=== PATIENT | female | born 1990 | race African-American/Black ===

== ENCOUNTER 2017-04-10 19:05 | Emergency (ER) | payer OTHER ==
[2017-04-10 21:04] LABS: INFLUENZA A AMPLIFICATION POSITIVE (NEGATIVE); INFLUENZA B AMPLIFICATION NEGATIVE (NEGATIVE)
[2017-04-10] MEDS: OSELTAMIVIR PHOSPHATE 75 MG CAP (TAMIFLU) PO (21:30)
== END 2017-04-10 21:36 | disposition home or self-care (01) ==
LOC: M ED 19:05
DX: J09.X2 Influenza due to identified novel influenza A virus with other respiratory manifestations (principal); Z79.3 Long term (current) use of hormonal contraceptives
CPT/HCPCS: 87502

== ENCOUNTER → 2017-06-07 | Outpatient (REF) | payer OTHER | LOC: M LAB REF 13:42 | DX: Z01.419 Encounter for gynecological examination (general) (routine) without abnormal findings (principal); Z12.4 Encounter for screening for malignant neoplasm of cervix ==

== ENCOUNTER 2018-07-06 23:18 | Emergency (ER) | payer BC, OTHER ==
[~2018-07-06] VITALS: Ht 165.1 cm; Wt 68.2 kg
[~2018-07-06 23:18] MED LIST: ANUS2.5C2 EXT; DOCU5LIQ PO; HEAT0.35; IBUP-1114 PO; IBUP600T26 PO; LANOOIN21 EX; MAPA500T17 PO; MAPA500T2 PO; MILK10SU PO; OSEL75CA PO; PRENTAB66 PO
[2018-07-07] MEDS ORDERED: IBUP80TA PO (00:50)
[2018-07-07] MEDS ORDERED: IBUPROFEN 800 MG TAB PO ONE (01:00)
[2018-07-07 01:08] VITALS: BP 120/69
--- NOTE | 2018-07-07 07:58 | REP ---
LEFT KNEE, FOUR VIEWS: HISTORY: Pain. There is no acute fracture or dislocation. The joint spaces are normal in appearance. IMPRESSION: There is no acute fracture or dislocation. Electronically Signed by Nikhil Marie MD 07/07/2018 08:35 A
== END 2018-07-07 01:09 | disposition home or self-care (01) ==
LOC: M ED 23:18
DX: S83.002A Unspecified subluxation of left patella, initial encounter (principal); X58.XXXA Exposure to other specified factors, initial encounter; Y92.89 Other specified places as the place of occurrence of the external cause; Z79.3 Long term (current) use of hormonal contraceptives

== ENCOUNTER → 2018-08-03 | Outpatient (CLI) | payer BC ==
[~2018-08-03] MED LIST changes: +IBUP80TA PO
--- NOTE | 2018-08-06 10:03 | REP ---
MRI LEFT KNEE: TECHNIQUE: Axial proton density fat saturation, sagittal proton density T2 STIR, water excitation, coronal proton density, proton density fat saturation. The menisci are intact with no evidence of a tear. The cruciate and collateral ligaments are intact. The medial and lateral patellar retinacula are intact. The extensor mechanism is intact. No osteochondral defect is seen. There is very mild global chondromalacia along the femoral condyles. There is no bone marrow edema or occult fracture. There is a small joint effusion. No popliteal cyst is seen. IMPRESSION: No evidence of internal derangement. 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 Small joint effusion. Electronically Signed by Tacos Matias MD 08/06/2018 11:04 A
== END ==
LOC: M RAD 10:42
PROVIDERS: ATTEND Orthopaedic Surgery Sports Medicine
DX: M25.562 Pain in left knee (principal); M25.462 Effusion, left knee; M94.262 Chondromalacia, left knee

== ENCOUNTER → 2018-08-06 | Outpatient (REF) | payer BC | LOC: M LAB REF 16:06 | PROVIDERS: ATTEND Physician Assistant | DX: J02.9 Acute pharyngitis, unspecified (principal) ==

== ENCOUNTER → 2019-01-07 | Outpatient (REF) | payer BC | LOC: M LAB REF 17:23 | PROVIDERS: ATTEND Specialist | DX: Z12.4 Encounter for screening for malignant neoplasm of cervix (principal) ==

== ENCOUNTER → 2019-01-15 | Outpatient (CLI) | payer BC ==
--- NOTE | 2019-01-16 09:33 | REP ---
Clinical: Abnormal menstrual cycles . Technique: Transabdominal pelvic ultrasound followed by transvaginal examination for better evaluation of the endometrium and adnexa with color Doppler evaluation of the ovaries. Findings: Bladder is incompletely distended. Normal anteverted uterus measures 8.2 x 3.8 x 4.4 cm . The endometrial complex measures 7.3 mm thickness. No discrete uterine or endometrial abnormalities are appreciated. Prominent pelvic vessels are appreciated raising the possibility of pelvic congestion syndrome. Bilateral ovaries are normal in appearance and vascularity without evidence for torsion. Right ovary measures 3.2 x 1.2 x 1.4 cm ; R I = 0.53 . Left ovary measures 3.4 x 2.3 x 2.7 cm with 2.2 cm complex likely physiologic cyst ; R I = 0.47 . No pelvic fluid or adnexal mass lesion. Impression: 1. Complex left ovarian cyst likely physiologic. Consider reevaluation in 4-weeks to evaluate for resolution. 2. Prominent pulmonary vasculature raises the possibility of pelvic congestion syndrome. Electronically Signed by Delmar Baum MD 01/16/2019 09:25 A
== END ==
LOC: M RAD 17:35
PROVIDERS: ATTEND Specialist
DX: N83.202 Unspecified ovarian cyst, left side (principal); N93.8 Other specified abnormal uterine and vaginal bleeding

== ENCOUNTER → 2019-03-13 | Outpatient (CLI) | payer BC ==
--- NOTE | 2019-03-13 07:51 | REP ---
Nickel: Dating and viability. Technique: Transabdominal first trimester obstetrical ultrasound with Doppler evaluation. Findings: Ultrasound examination demonstrates a single live early intrauterine . CRL of 16 mm corresponds to 8 weeks 0 days gestational age with estimated date of delivery 10/23/2019. heart rate equals 160 bpm. Small subchorionic hemorrhage measures 10 x 9 x 5 mm. Impression: 1. Single live intrauterine at 8 weeks 0 days gestational age. Complete anatomical assessment should be performed at 19-20 weeks. 2. Small subchorionic hemorrhage. Electronically Signed by Delmar Baum MD 03/13/2019 07:42 A
== END ==
LOC: M RAD 06:20
PROVIDERS: ATTEND Nurse Practitioner Family
DX: Z32.01 Encounter for pregnancy test, result positive (principal); Z3A.08 8 weeks gestation of pregnancy

== ENCOUNTER 2019-04-02 10:20 | Emergency (ER) | payer BC ==
[~2019-04-02] VITALS: Ht 165.1 cm; Wt 71.2 kg
[2019-04-02] MEDS ORDERED: DEBL1TAB (10:29)
[2019-04-02 11:17] LABS: HEMATOCRIT 34.7 % (36.0-47.0); HEMOGLOBIN 10.9 g/dl (12.0-15.5); MEAN CORPUSCULAR HEMOGLOBIN 27.4 pg (27.0-33.0); MEAN CORPUSCULAR HGB CONC 31.4 g/dl (32.0-36.5); MEAN CORPUSCULAR VOLUME 87.2 fl (80.0-96.0); PLATELET COUNT, AUTOMATED 281 10^3/uL (150-450); RED BLOOD COUNT 3.98 10^6/uL (4.00-5.40); WHITE BLOOD COUNT 8.6 10^3/uL (4.0-10.0)
[2019-04-02 11:42] LABS: HCG, SERUM QUALITATIVE POSITIVE (NEGATIVE)
[2019-04-02] MEDS ORDERED: NS 1,000 ML IV ONE ×2 (12:00→14:30)
--- NOTE | 2019-04-02 13:44 | REP ---
Pelvic ultrasound including transabdominal, endovaginal and Doppler ultrasound assessment: The uterus is anteverted and anteflexed and mildly enlarged measuring 10.9 x 4.0 x 4.5 cm. The endometrium is not thickened measuring up to 16 mm in the fundus and 11.1 mm in the lower uterine segment. There is complex swirling fluid within the endometrial canal which could represent a combination of hemorrhage and clot. Therefore, retained products of conception cannot be entirely excluded. Right ovary: The right ovary measures 3.8 x 1.0 x 1.8 cm and is normal size. There is a 1.1 cm anechoic structure adjacent to the right ovary, likely a para ovarian cyst . There is right ovarian vascular flow with the Doppler resistive index of the parenchymal arteries measuring 0.47. Left ovary: The left ovary measures 3.80 1.5 x 2.7 cm and is normal size. There is an anechoic follicle measuring up to 2.1 cm. There is vascular flow in the left ovary with the Doppler resistive index in the parenchymal arteries measuring 0.66. Impression: Retained products of conception versus artifact from hemorrhage and clot within the endometrial canal. Follow-up is recommended. Small right paraovarian cyst. Electronically Signed by Tacos Tristan MD 04/02/2019 01:35 P
[2019-04-02 14:04] LABS: BLOOD UREA NITROGEN 11 MG/DL (7-18); CALCIUM LEVEL 9.6 MG/DL (8.5-10.1); CARBON DIOXIDE LEVEL 24 MEQ/L (21-32); CHLORIDE LEVEL 109 MEQ/L (98-107); CREATININE FOR GFR 0.74 MG/DL (0.55-1.30); GLOMERULAR FILTRATION RATE > 60.0 (>60); GLUCOSE, FASTING 82 MG/DL (70-100); HCG, SERUM QUANTITATIVE 3207 MIU/ML; POTASSIUM SERUM 3.9 MEQ/L (3.5-5.1); SODIUM LEVEL 140 MEQ/L (136-145)
[2019-04-02 16:12] VITALS: BP 106/54
== END 2019-04-02 16:13 | disposition home or self-care (01) ==
LOC: M ED 10:20
DX: O03.4 Incomplete spontaneous abortion without complication (principal); O04.80 (Induced) termination of pregnancy with unspecified complications; O34.82 Maternal care for other abnormalities of pelvic organs, second trimester; Z79.3 Long term (current) use of hormonal contraceptives

== ENCOUNTER → 2019-08-29 | Outpatient (CLI) | payer BC, OTHER ==
[~2019-08-29] MED LIST changes: +DEBL1TAB
--- NOTE | 2019-09-02 03:24 | ECWPNPC ---
PATIENT NAME: KAI POE : 1990 GENDER: FEMALE VISIT DATE: 08/29/2019 DISCHARGE DATE: 08/29/19 1008 VISIT LOCKED DATE TIME: PHYSICIAN: MARIBEL DENTON MD RESOURCE: MARIBEL DENTON MD REASON FOR APPOINTMENT 1. PRE SEDATE- SPINAL TAP HISTORY OF PRESENT ILLNESS GENERAL: 28 YEAR OLD FEMALE PATIENT WITH A HISTORY OF NEUROLOGICAL CHANGES. THE PATIENT STATES SHE HAS A HISTORY OF HEADACHES AND VISION CHANGES. THE PATIENT WAS SEEN BY DR. BARROSO WHO REFERRED HER TO DR. CLAROS, NEUROLOGIST. DR. CLAROS REFERRED THE PATIENT TO OUR CLINIC FOR A SPINAL TAP TO RULE OUT CEREBRI TUMOR. THE PATIENT DENIES UNEXPLAINED WEIGHT LOSS, FEVER, CHILLS, NEW CHANGES IN HER URINARY OR BOWEL CONTROL. FALL RISK SCREENING: SCREENING :NO FALLS REPORTED IN THE LAST YEAR PAIN SCREENING: PATIENT HAS A COMPLAINT OF ACUTE OR CHRONIC PAIN :NO NURSING NOTE: - - -. PAIN CENTER INTAKE QUESTIONS: DO YOU HAVE A HISTORY OF MRSA? :NO DO YOU TAKE A BLOOD THINNERS? :NO DO YOU HAVE ANY BLEEDING DISORDERS? :NO ANY NEW NUMBNESS OR WEAKNESS IN YOUR LEGS OR ARMS? :NO ANY PACEMAKER,DEFIBRILLATOR, OR DORSAL COLUMN STIMULATOR? :NO DO YOU HAVE ANY RASHES OR OPEN SORES? :NO ARE YOU ALLERGIC TO IV DYE? :NO ARE YOU DIABETIC? :NO ANY NEW PROBLEMS WITH YOUR MEDICATIONS? :NO HAVE YOU RECEIVED A VACCINE IN THE PAST 30 DAYS? :NO DO YOU PLAN TO RECEIVE A VACCINE IN THE NEXT 21 DAYS? :NO DO YOU NEED ANY PRESCRIPTION? :NO DO YOU TAKE ANY IMMUNOSUPPRESSIVE MEDICATIONS? :NO CURRENT MEDICATIONS NOT-TAKING IBUPROFEN 600 MG TABLET 1 TABLET WITH FOOD OR MILK NEEDED ORALLY EVERY 6 HRS PRN NOT-TAKING CETIRIZINE HCL 10 MG TABLET 1 TABLET NEEDED ORALLY ONCE A DAY NOT-TAKING IBUPROFEN 800 MG TABLET 1 TABLET ORALLY FOUR TIMES DAILY NEEDED FOR PAIN TAKE WITH FOOD NOT-TAKING DEBLITANE 0.35 MG TABLET 1 TABLET ORALLY ONCE A DAY MEDICATION LIST REVIEWED AND RECONCILED WITH THE PATIENT PAST MEDICAL HISTORY ALLERGIES N.K.D.A. SURGICAL HISTORY ROOT CANAL 2009 FAMILY HISTORY FATHER: ALIVE MOTHER: ALIVE MOM- MENTAL HEALTH, HYPERTENTION, ASTHMA. SOCIAL HISTORY GENERAL: TOBACCO USE ARE YOU A:NONSMOKER LATEX QUESTIONNAIRE LATEX ALLERGY : HAVE YOU EVER DEVELOPED ANY TYPE OF REACTION AFTER HANDLING LATEX PRODUCTS SUCH RUBBER GLOVES, CONDOMS, DIAPHRAGMS, BALLOONS, SOCKS, OR UNDERWEAR?NO LATEX ALLERGY : HAVE YOU EVER DEVELOPED ANY TYPE OF REACTION DURING OR AFTER DENTAL APPOINTMENT, VAGINAL/RECTAL EXAMINATION, SURGICAL PROCEDURE, OR ANY OTHER EXPOSURE?NO LATEX RISK : HAVE YOU EVER HAD ANY DIFFICULTY BREATHING OR HIVES AFTER EATING OR HANDLING ANY FRUITS, OR VEGETABLES; SUCH KIWI, BANANAS, STONE FRUITS, OR CHESTNUTSNO LATEX RISK : DO YOU HAVE A PREVIOUS PERSONAL HISTORY OF MORE THAN NINE SURGERIES, SPINA BIFIDA, OR REPEATED CATHERIZATIONS? NO LATEX RISK : ARE YOU FREQUENTLY EXPOSED TO LATEX PRODUCTS IN YOUR OCCUPATION?NO DATE ASKED : 08/29/2019 RECREATIONAL DRUG USE DRUG USE?NO CAFFEINE CAFFEINE USE?YES 2 CUP DAILY HIV / HEP-C SCREENING HIV TEST OFFERED TO PATIENT:YES DATE OFFERED:05/28/2017 TEST ACCEPTED:NO HEP-C TEST OFFERED TO PATIENT:NO REASON:PATIENT DECLINED BROCHURE PROVIDED TO PATIENTNO LEARNING BARRIERS / SPECIAL NEEDS BARRIERS TO LEARNING?NO HEARING IMPAIRED?NO VISION IMPAIRED?NO COGNITIVELY IMPAIRED?NO READINESS TO LEARN?YES LEARNING PREFERENCES?NO LEARNING CAPABILITIES PRESENT?YES EMOTIONAL BARRIERS?NO SPECIAL DEVICES?NO INNER DIAMETER GRINDER TOOL NEEDED?NO DIET: REGULAR. PAIN CLINIC PFS, CLERGY, PUBLIC HEALTH REFERRALS HAS THE PATIENT BEEN EDUCATED REGARDING HIS/HER PLAN OF CARE?YES HAS THE PATIENT BEEN EDUCATED REGARDING PAIN, THE RISK FOR PAIN, THE IMPORTANCE OF EFFECTIVE PAIN MANAGEMENT, AND THE PAIN ASSESSMENT PROCESS?YES ORIENTED TO PAIN MANAGEMENT ADVANCE DIRECTIVE ADVANCE DIRECTIVE DISCUSSED WITH PATIENT:YES HCP MANUEL SMITH [phone] HOSPITALIZATION/MAJOR DIAGNOSTIC PROCEDURE NO HOSPITALIZATION HISTORY. REVIEW OF SYSTEMS CONSTITUTIONAL: ANY RECENT FEVER NO . CHILLS NO . WEIGHT CHANGE OF UNKNOWN REASONS NO . MUSCULOSKELETAL: ANY UNUSUAL JOINT PAIN OR SWELLING NOT MENTIONED NO . SYSTEMIC LUPUS NO . ANY NEUROMUSCULAR DISORDER NOT MENTIONED NO . LYME DISEASE NO . GASTROENTEROLOGY: ANY NEW CHANGE IN BOWEL CONTROL? NO . HISTORY OF LIVER DISORDER NOT MENTIONED NO . HISTORY OF UNUSUAL ABDOMINAL PAIN OR CRAMPING NOT MENTIONED NO . NO CONSTIPATION. GENITOURINARY: ANY NEW CHANGE IN BLADDER CONTROL? NO . ANY RENAL/KIDNEY CONDITON NOT MENTIONED NO . NEUROLOGY: HISTORY OF TBI NOT MENTIONED NO . OTHER NEW NUMBNESS OR PAIN PATTERNS NOT MENTIONED NO . NEW ONSET DIZZINESS OR NEUROLOGICAL CHANGES NOT MENTIONED NO . HISTORY OF SEVERE HEADACHES NOT MENTIONED NO . HISTORY OF STROKE OR NEUROLOGICAL DISORDER NOT MENTIONED NO . CARDIOLOGY: HEART SURGERY NO . CONGESTIVE HEART FAILURE/FLUID OVERLOAD NOT MENTIONED NO . HISTORY OF CHEST PAIN,IRREGULAR HEART BEAT NOT MENTIONED NO . RESPIRATORY: SHORTNESS OF BREATH ON EXERTION, WHEEZES, UNUSUAL COUGH NOT MENTIONED NO . ENDOCRINOLOGY: ADRENAL GLAND OR THYROID DISORDERS NOT MENTIONED NO . UNUSUAL URINATION, DIZZINESS OR LETHARGY NOT MENTIONED NO . VITAL SIGNS WT 140 LBS, HT 65.5 IN, BMI 22.94 INDEX, BP 110/70 MM HG, HR 86 /MIN, RR 18 /MIN, TEMP 98.1 F, OXYGEN SAT % 99%, SAFE IN ENV? (Y/N) Y, NA INITIALS AW 0941, REVIEWED BY: MARLA. EXAMINATION GENERAL: PATIENT IS ALERT O X 3 AND COOPERATIVE. LUNGS CLEAR, TO AUSCULTATION. HEART: NO MURMURS OR GALLOPS; FACIAL CRANIAL NERVES ARE GROSSLY NORMAL. GOOD SYMMETRY OF FACIAL MUSCLE MOVEMENT. NORMAL VISUAL RODRIGUEZ. ASSESSMENTS NEUROLOGICAL SYMPTOMS - R29.90 (PRIMARY) RULE OUT CEREBRI TUMOR. TREATMENT NEUROLOGICAL SYMPTOMS CLINICAL NOTES: WE DISCUSSED SEVERAL ISSUES WITH MS. POE'S CASE. THE PATIENT WAS REFERRED TO OUR CLINIC BY DR. CLAROS FOR A SPINAL TAP TO RULE OUT CEREBRI TUMOR. WE WILL PROCEED WITH A SPINAL TAP WITH IV SEDATION IN SEVERAL WEEKS. INSTRUCTIONS WERE GIVEN, QUESTIONS WERE ANSWERED, PATIENT REPORTS UNDERSTANDING AND AGREES WITH THE PLAN. I, JANE COHEN, DOCUMENTED THE ABOVE INFORMATION ACTING A SCRIBE FOR DR. DENTON. I HAVE REVIEWED THE ABOVE DOCUMENT, WRITTEN BY JANE HOEWLL AND I VERIFY THAT IT IS ACCURATE. . PROCEDURE CODES PNEUMOVAX (GIVEN ELSEWHERE) G8427 CURRENT MEDS W/DOSAGES DOCUMENTED G8730 PAIN ASSESS POS TOOL F/U PLAN DOC FA211 ESTABILISHED PATIENT [facility] FACILITY CHARGE DISPOSITION & COMMUNICATION FOLLOW UP 3 WEEKS (REASON: SPINAL TAP WITH IV SEDATE) ELECTRONICALLY SIGNED BY MARIBEL DENTON MD, MD ON 09/01/2019 AT 12:48 PM EDT DISCLAIMER : THIS IS A VISIT SUMMARY EXTRACTED FROM THE [employer] CHART. IT IS NOT A COPY OF THE [employer] PROGRESS NOTE. EDGARDO
== END ==
LOC: M PAIN 09:00
PROVIDERS: ATTEND Anesthesiology
DX: R29.90 Unspecified symptoms and signs involving the nervous system (principal)

== ENCOUNTER → 2019-09-17 | Outpatient (CLI) | payer BC ==
[~2019-09-17] MED LIST changes: +LIDOCAINE 1% SDV 30ML VIAL As Ordered ONE; +MIDAZOLAM INJ 2MG/2ML VIAL (J2250 PER 1MG) As Ordered ONE; +fentaNYL 100 MCG/2 ML INJECTION (J3010) As Ordered ONE
[2019-09-17 12:54] LABS: CSF TUBE# GLU TUBE 1; CSF TUBE# TP TUBE 1; GLUCOSE CSF 49 MG/DL (40-75); TOTAL PROTEIN,CSF 30 MG/DL (15-45)
[2019-09-17 13:07] LABS: APPEARANCE, CSF CLEAR (CLEAR); COLOR, CSF COLORLESS (COLORLESS); CSF TUBE# CELL CNT TUBE 3
--- NOTE | 2019-09-19 03:06 | ECWPNPC ---
PATIENT NAME: KAI POE : 1990 GENDER: FEMALE VISIT DATE: 09/17/2019 DISCHARGE DATE: 09/17/19 1331 VISIT LOCKED DATE TIME: PHYSICIAN: MARIBEL DENTON MD RESOURCE: MARIBEL DENTON MD REASON FOR APPOINTMENT 1. SPINAL TAP PAT COMPLETED. PT NEEDS TO BE IN A PRE ROOM HISTORY OF PRESENT ILLNESS PAIN CENTER INTAKE QUESTIONS: DO YOU HAVE A HISTORY OF MRSA? :NO DO YOU TAKE A BLOOD THINNERS? :NO DO YOU HAVE ANY BLEEDING DISORDERS? :NO ANY NEW NUMBNESS OR WEAKNESS IN YOUR LEGS OR ARMS? :NO ANY PACEMAKER,DEFIBRILLATOR, OR DORSAL COLUMN STIMULATOR? :NO DO YOU HAVE ANY RASHES OR OPEN SORES? :NO ARE YOU ALLERGIC TO IV DYE? :NO ARE YOU DIABETIC? :NO ANY NEW PROBLEMS WITH YOUR MEDICATIONS? :NO HAVE YOU RECEIVED A VACCINE IN THE PAST 30 DAYS? :NO DO YOU PLAN TO RECEIVE A VACCINE IN THE NEXT 21 DAYS? :NO DO YOU TAKE ANY IMMUNOSUPPRESSIVE MEDICATIONS? :NO ANY HISTORY OF SEIZURES? :NO ANY HISTORY OF CARDIAC ISSUES OR EVENTS? :NO DO YOU HAVE SLEEP APNEA? :NO ANY RECENT HEAD INJURY? :NO DO YOU HAVE ANY NEW INFECTIONS? :NO IS THERE A CHANCE YOU COULD BE ? :NO ARE YOU BREAST FEEDING? :NO WHEN DID YOU LAST EAT? : 09/16/20192099 WHEN DID YOU LAST DRINK? : 09/16/20192099 WHAT DID YOU LAST DRINK? : WATER NAME OF PERSON DRIVING YOU HOME? : BOYFRIEND DO YOU HAVE ANY OTHER QUESTIONS OR CONCERNS? : - GENERAL: -. FALL RISK SCREENING: SCREENING :NO FALLS REPORTED IN THE LAST YEAR PAIN SCREENING: PATIENT HAS A COMPLAINT OF ACUTE OR CHRONIC PAIN :NO NURSING NOTE: -. CURRENT MEDICATIONS TAKING DEBLITANE 0.35 MG TABLET 1 TABLET ORALLY ONCE A DAY, NOTES: 09/16/20192029 NOT-TAKING IBUPROFEN 600 MG TABLET 1 TABLET WITH FOOD OR MILK NEEDED ORALLY EVERY 6 HRS PRN NOT-TAKING CETIRIZINE HCL 10 MG TABLET 1 TABLET NEEDED ORALLY ONCE A DAY NOT-TAKING IBUPROFEN 800 MG TABLET 1 TABLET ORALLY FOUR TIMES DAILY NEEDED FOR PAIN TAKE WITH FOOD MEDICATION LIST REVIEWED AND RECONCILED WITH THE PATIENT PAST MEDICAL HISTORY ALLERGIES N.K.D.A. SURGICAL HISTORY ROOT CANAL 2010 FAMILY HISTORY FATHER: ALIVE MOTHER: ALIVE MOM- MENTAL HEALTH, HYPERTENTION, ASTHMA. SOCIAL HISTORY GENERAL: TOBACCO USE ARE YOU A:NONSMOKER LATEX QUESTIONNAIRE LATEX ALLERGY : HAVE YOU EVER DEVELOPED ANY TYPE OF REACTION AFTER HANDLING LATEX PRODUCTS SUCH RUBBER GLOVES, CONDOMS, DIAPHRAGMS, BALLOONS, SOCKS, OR UNDERWEAR?NO LATEX ALLERGY : HAVE YOU EVER DEVELOPED ANY TYPE OF REACTION DURING OR AFTER DENTAL APPOINTMENT, VAGINAL/RECTAL EXAMINATION, SURGICAL PROCEDURE, OR ANY OTHER EXPOSURE?NO DATE ASKED : 08/29/2019 LATEX RISK : HAVE YOU EVER HAD ANY DIFFICULTY BREATHING OR HIVES AFTER EATING OR HANDLING ANY FRUITS, OR VEGETABLES; SUCH KIWI, BANANAS, STONE FRUITS, OR CHESTNUTSNO LATEX RISK : DO YOU HAVE A PREVIOUS PERSONAL HISTORY OF MORE THAN NINE SURGERIES, SPINA BIFIDA, OR REPEATED CATHERIZATIONS? NO LATEX RISK : ARE YOU FREQUENTLY EXPOSED TO LATEX PRODUCTS IN YOUR OCCUPATION?NO RECREATIONAL DRUG USE DRUG USE?NO CAFFEINE CAFFEINE USE?YES 2 CUP DAILY HIV / HEP-C SCREENING HIV TEST OFFERED TO PATIENT:YES DATE OFFERED:05/28/2017 TEST ACCEPTED:NO HEP-C TEST OFFERED TO PATIENT:NO REASON:PATIENT DECLINED BROCHURE PROVIDED TO PATIENTNO LEARNING BARRIERS / SPECIAL NEEDS BARRIERS TO LEARNING?NO HEARING IMPAIRED?NO VISION IMPAIRED?NO COGNITIVELY IMPAIRED?NO READINESS TO LEARN?YES LEARNING PREFERENCES?NO LEARNING CAPABILITIES PRESENT?YES EMOTIONAL BARRIERS?NO SPECIAL DEVICES?NO STONE FINISHER NEEDED?NO DIET: REGULAR. PAIN CLINIC PFS, CLERGY, PUBLIC HEALTH REFERRALS HAS THE PATIENT BEEN EDUCATED REGARDING HIS/HER PLAN OF CARE?YES HAS THE PATIENT BEEN EDUCATED REGARDING PAIN, THE RISK FOR PAIN, THE IMPORTANCE OF EFFECTIVE PAIN MANAGEMENT, AND THE PAIN ASSESSMENT PROCESS?YES ORIENTED TO PAIN MANAGEMENT ADVANCE DIRECTIVE ADVANCE DIRECTIVE DISCUSSED WITH PATIENT:YES HCP MANUEL SMITH [phone] HOSPITALIZATION/MAJOR DIAGNOSTIC PROCEDURE NO HOSPITALIZATION HISTORY. VITAL SIGNS WT 165.4 LBS, HT 65.5 IN, BMI 27.10 INDEX, BP 115/81 MM HG, HR 87 /MIN, RR 18 /MIN, TEMP 97.5 F, OXYGEN SAT % 99%, NA INITIALS AW 1022, REVIEWED BY: KG. EXAMINATION GENERAL EXAMINATION: A HISTORY AND PHYSICAL EXAM ON THE PATIENT WAS DONE ON 08/29/2019 (DATE OF ORIGINAL ASSESSMENT) IN PREPARATION OF SURGERY/PROCEDURE. I HAVE NOW REASSESSED THIS PATIENT'S HEALTH STATUS AND PERFORMED AN UPDATED EXAM TODAY. ALL CHANGES IN THE PATIENT'S HISTORY, PHYSICAL EXAM, PRE-EXISTING CONDITONS, AND INDICATIONS/CONTRAINDICATIONS TO THE PLANNED PROCEDURE AND ANESTHESIA ARE DOCUMENTED AND EVALUATED BELOW. I ATTEST TO THE ADEQUACY AND APPROPRIATENESS OF MY ASSESSMENT, AND CONFIRM THE NECESSITY FOR THE PLANNED PROCEDURE. THE PATIENT IS ALERT, ORIENTED TIMES THREE AND COOPERATIVE. HEART SHOWS REGULAR RHYTHM, NO MURMURS AND NO GALLOPS. LUNGS ARE CLEAR TO AUSCULTATION. 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 TREATMENT NEUROLOGICAL SYMPTOMS MEDICATION: FENTANYL CITRATE 25MCG IVGUPARESH MCCARTHY 09/17/2019 11:05:23 AM > VERIFIED LEORA WHITTAKERL 09/17/2019 11:26:11 AM - SECOND DOSE ORDERED, VERIFIED WITH JACKIE BANKS 09/17/2019 12:11:21 PM > LOT#[id number] EXP:11/2020 25MCG GIVEN AT 1122, 25 MCG GIVEN AT 1126 MEDICATION: VERSED 1MG IV (MIDAZOLAM)PARESH CERVANTES 09/17/2019 11:05:37 AM > VERIFIED REMEDIOSVERITO 09/17/2019 11:28:59 AM - SECOND DOSE ORDERED, VERIFIED WITH JACKEI BANKS 09/17/2019 12:12:40 PM > 1 MG GIVEN AT 1121, 1 MG GIVEN AT 1129 PRIYANKJACKIE LORENZ 09/17/2019 12:13:12 PM > LOT#[id number] EXP: 10 OCT 2020 MEDICATION: FENTANYL CITRATE 50MCG IV JACKIE YOST 09/17/2019 12:11:58 PM > 50 MCG GIVEN AT 1129 IV AT KVODILELEORA FRANCISCOL 09/17/2019 10:31:58 AM - LACTATED RINGERS JACKIE YOST 09/17/2019 10:48:20 AM > #20 SL INITITATED IN RIGHT AC X1 ATTEMPT BY THIS PARER. SITE ASYMPTOMATIC, PT TOLERATED LEORA WHITTAKERL 09/17/2019 11:57:42 AM - 300 ML OXYGEN AT 2 LITERS PER NASAL CANNULAJACKIE YOST 09/17/2019 12:13:37 PM > DONE PER ORDER PROCEDURES PAIN NURSING RECORD PRE-PROCEDURE IV SITE RIGHT ANTECUBITAL, IV STARTED # 20, IV STARTED BY: Keith NEWTON RN, IV ATTEMPTS 1 PROCEDURE IN ROOM 1100, PHYSICIAN IN ROOM 1120, START 1132, FINISH 1152, PHYSICIAN OUT OF ROOM 1157, OUT OF ROOM 1210, STEROID N/A, ECG NORMAL SINUS, PATIENT SHIELDED YES, SAFETY STRAP NO, PREP BETADINE DR DENTON, IV INFUSED 300 ML OF LACTATED RINGERS, DRESSING TEGADERM PLACED ON BY DR DENTON LOC: IN ROOM 1100, PHYSICIAN IN ROOM 1120, START 1132, FINISH 1152, PHYSICIAN OUT OF ROOM 1157, OUT OF ROOM 1210, STEROID N/A, ECG NORMAL SINUS, PATIENT SHIELDED YES, SAFETY STRAP NO, PREP BETADINE DR DENTON, IV INFUSED 300 ML OF LACTATED RINGERS, DRESSING TEGADERM PLACED ON BY DR DENTON RESP: IN ROOM 1100, PHYSICIAN IN ROOM 1120, START 1132, FINISH 1152, PHYSICIAN OUT OF ROOM 1157, OUT OF ROOM 1210, STEROID N/A, ECG NORMAL SINUS, PATIENT SHIELDED YES, SAFETY STRAP NO, PREP BETADINE DR DENTON, IV INFUSED 300 ML OF LACTATED RINGERS, DRESSING TEGADERM PLACED ON BY DR DENTON COLOR: 1. ALERT, ORIENTED SKIN: 1. WARM, DRY POSITION: 3. LATERAL VITALS: 1125 118/76 81 100% ON 2 LITER RESP 18 1130 125/84 82 100% ON 2 LITER RESP 18 1135 143/65 81 100% ON 2 LITER RESP 18 1140 132/65 82 100% ON 2 LITER RESP 18 1145 115/74 88 100% ON 2 LITER RESP 16 SPECIMAN LABELED AT THE BEDSIDE AND SENT TO LAB DISCHARGE: POST PAIN 'NONE", DRESSING SITE CLEAR AND DRY, IV DISCONTINUED, SITE CLEAR, PATIENT DISCHARGED AT 1250 WITH HAFSA RIVAS PRE PROCEDURE DIAGNOSIS PSEUDOTUMOR CEREBRI PROCEDURE SPINAL TAP PRE PROCEDURE NOTE PATIENT INTERVIEWED, EXAMINATIONS AND TREATMENT QUESTIONNAIRES WERE REVIEWED. PROCEDURE AND RISKS AND BENEFITS WERE DISCUSSED WITH PATIENT DESCRIPTION OF PROCEDURE AFTER CONSENT WAS REVIEWED WITH THE PATIENT, WE TOOK THE PATIENT TO THE PROCEDURE ROOM. A TIMEOUT WAS PERFORMED WHERE LATERALITY AND THE SITE OF THE PROCEDURE WERE CHECKED AND CONFIRMED WITH EVERYONE IN THE ROOM. THE PATIENT WAS PLACED IN THE LEFT LATERAL POSITION. THE AREA WAS PREPPED WITH BETADINE IN STERILE FASHION. LOCAL INFILTRATE 1% LIDOCAINE AT THE L4-L5 INTERSPACE. A 22-GAUGE QUINCKE NEEDLE WAS ADVANCED UNTIL THE DURA WAS FELT AND CSF IS FREE-FLOWING. THERE WAS NO BLOOD RETURN ENCOUNTERED. THERE WAS NO PARAESTHESIA ENCOUNTERED. OPENING PRESSURE WAS MEASURED AT 20 CM OF WATER. 4 VIALS X 3.0 CC OF CSF WAS COLLECTED. CSF WAS DESCRIPTION WAS CLEAR. CSF SENT FOR STUDIES ORDERED BY REFERRING PHYSICIAN. VITAL SIGNS WERE STABLE. THERE WERE NO COMPLICATIONS. ESTIMATED BLOOD LOSS WAS LESS THAN 5 ML. IV SEDATION START TIME: 1121 IV SEDATION END TIME: 1157 TOTAL [id number] TIME: 36 MINUTES POST PROCEDURE NOTE DISCHARGE WHEN PATIENT MEETS CRITERIA PATIENT WILL FOLLOW UP WITH DR. RM AND CALL OUR OFFICE NEEDED PROCEDURE CODES 25067 SPINAL FLUID TAP DIAGNOSTIC 95094 MOD SED SAME PHYS/QHP 5/>YRS 62016 MOD SED SAME PHYS/QHP EA DISPOSITION & COMMUNICATION FOLLOW UP F/UP WITH NEUROLOGIST (REASON: POST SPINAL TAP) ELECTRONICALLY SIGNED BY MARIBEL DENTON MD, ON 09/18/2019 AT 12:43 PM EDT DISCLAIMER : THIS IS A VISIT SUMMARY EXTRACTED FROM THE [employer] CHART. IT IS NOT A COPY OF THE [employer] PROGRESS NOTE. EDGARDO
== END ==
LOC: M PAIN 10:15
PROVIDERS: ATTEND Anesthesiology
DX: R29.90 Unspecified symptoms and signs involving the nervous system (principal); G93.2 Benign intracranial hypertension
CPT/HCPCS: 36415; 62270; 82784; 82945; 83916; 84157; 87070; 87102; 87205; 87252; 87483; 88108; 88313; 89050; 99152; 99153; J2250; J3010

== ENCOUNTER → 2020-05-17 | Outpatient (REF) | payer BC ==
[~2020-05-17] MED LIST changes: -LIDOCAINE 1% SDV 30ML VIAL As Ordered ONE; -MIDAZOLAM INJ 2MG/2ML VIAL (J2250 PER 1MG) As Ordered ONE; -fentaNYL 100 MCG/2 ML INJECTION (J3010) As Ordered ONE
== END ==
LOC: M SFHCWAGY 18:42
PROVIDERS: ATTEND Specialist
DX: Z01.419 Encounter for gynecological examination (general) (routine) without abnormal findings (principal)

== ENCOUNTER → 2021-09-06 | Outpatient (REF) | payer BC | LOC: M SFHCWAGY 17:38 | PROVIDERS: ATTEND Specialist | DX: Z01.419 Encounter for gynecological examination (general) (routine) without abnormal findings (principal); Z12.4 Encounter for screening for malignant neoplasm of cervix ==

== ENCOUNTER → 2021-10-10 | Outpatient (REF) | payer BC | LOC: M LAB REF 09:08 | PROVIDERS: ATTEND Surgery | DX: D48.5 Neoplasm of uncertain behavior of skin (principal) ==

== ENCOUNTER 2023-12-27 22:43 | Emergency (ER) | payer OTHER ==
[~2023-12-27] VITALS: Ht 165.1 cm; Wt 84.1 kg
[2023-12-28 02:22] VITALS: TEMP 97.6
[2023-12-28] MEDS: IBUPROFEN 600MG TAB PO ONE (03:09)
[2023-12-28 06:01] VITALS: BP 133/69; O2SAT 98
== END 2023-12-28 07:00 | disposition home or self-care (01) ==
LOC: M ED 22:43
DX: M25.562 Pain in left knee (principal); M25.469 Effusion, unspecified knee; Z79.899 Other long term (current) drug therapy

== ENCOUNTER → 2024-01-11 | Outpatient (CLI) | payer OTHER | LOC: M PLAIMG 06:48 | PROVIDERS: ATTEND Physician Assistant | DX: M25.562 Pain in left knee (principal); M67.52 Plica syndrome, left knee; M25.462 Effusion, left knee ==

== ENCOUNTER 2024-02-06 07:00 | Outpatient (RCR) | payer OTHER | END 2024-02-09 | LOC: M PT 07:00 | PROVIDERS: ATTEND Physician Assistant | DX: M25.562 Pain in left knee (principal) ==